=== PATIENT | male | born 1965 | race Caucasian/White ===

== ENCOUNTER 2023-09-13 14:58 | Emergency (ER) | payer OTHER, SELFPAY ==
[2023-09-13 14:59] VITALS: BP 155/107
--- NOTE | 2023-09-13 15:37 | ED.GENMED ---
History of Present Illness
General
Chief Complaint: Dizziness
Source: patient and spouse
Exam Limitations: none
Time Seen by Provider: 09/13/23 15:18
Travel History
Have you had any contact with someone who has COVID-19?: No
Do you have any symptoms of coronavirus? Fever > 100 degrees, chills, cough, shortness of breath, sore throat, loss of taste or smell, muscle aches, or headache?: No
History of Present Illness
History of Present Illness:
Patient is a 58-year-old male who presents to the ER for evaluation. Patient reports he started on Tuesday 2 days ago with chills. Since then he has had intermittent chills sweats. He reports he did have a temperature of 101 yesterday. He denies
any sore throat nasal congestion cough. He was getting a shower today and after the shower while getting dressed he felt short of breath and felt tingling in his left arm which is what prompted him to come to the ER. He denies any chest pain with
this. He has no cardiac history but does not have a family doctor. He has significant family history as family his brother and sisters as well as his parents.
He presently denies any chest pain arm tingling shortness of breath.
He denies any lower extremity swelling. No prior history of DVT PE.
Review of Systems
Review of Systems
Allergies reviewed?: Yes
All Other Systems: ROS reviewed and negative except as documented in HPI and ROS
Constitutional: Reports fever, fatigue and chills
EENT: Reports no symptoms
Respiratory: Reports no symptoms
Cardiac: Denies chest pain
ABD/GI: Reports no symptoms and nausea; Denies abdominal pain or vomiting
: Reports no symptoms; Denies dysuria
Musculoskeletal: Reports no symptoms
Skin: Reports no symptoms
Neurological: Reports no symptoms and other (had tingling of left hand )
Psychiatric: Reports no symptoms
Phy Exam
General Physical Exam
General Presentation: no apparent distress
General age: appears stated age
General Skin: warm and dry
General Habitus: normal
General Mental: alert
General Hydration: appears well hydrated
Cardiovascular Exam
Cardiovascular Exam: regular rate/rhythm, no murmur and normal peripheral pulses
Pulmonary Exam
Pulmonary Exam: lungs clear and no respiratory distress
Neurological Exam
Neurological Exam: alert and oriented x3
Marquis Coma Scale
Eye Opening: Spontaneous
Verbal Response: Oriented
Motor Response: Obeys Commands
GCS Total Score: 15
Musculoskeletal Exam
Musculoskeletal Exam: full ROM
Skin Exam
Skin Exam: normal color and warm/dry
Psychiatric Exam
Psychiatric Exam: normal mood/affect
Course
Orders/Labs/Results
Orders:
Orders
09/13/23 15:52
IV Insert/Care/Rem.- Treatment PRN
09/13/23 15:54
Electrocardiogram (*1) Stat
Reason for Study: Other
Other Reason for Exam: chest pain
Cardiac Monitoring- Treatment ONCE
EKG- Treatment ONCE
09/13/23 15:56
COVID-19 Antigen Urgent
Source: Nasal Swab
Complete Blood Count/With Diff Urgent
Comprehensive Metabolic Panel Urgent
NT-proBNP Urgent
Troponin I Urgent
Influenza A+B Rapid Molecular Urgent
CHIQUIS Source: Nasal Swab
Specimen Description:
09/13/23 16:46
Urinalysis Reflex To Culture Urgent
Date Specimen was Collected: 09/13/23
Time Specimen was Collected: 16:46
Urine Microscopic Reflex Cult Urgent
Urine Culture Urgent
CHIQUIS Source: U
Specimen Description:
Date Specimen was Collected: 09/13/23
Time Specimen was Collected: 16:46
09/13/23 16:56
0.9% Sodium Chloride 1000 ml [Nss] 1,000 ml IV BOLUS
09/13/23 17:11
DDimer [D-Dimer] Urgent
09/13/23 18:07
Chest [CR Chest - 2 Views ] Urgent
Comment:
Reason For Exam: sob
09/13/23 18:56
CT Chest Pe Study Urgent
Comment:
Reason For Exam: sob
09/13/23 20:01
CefTRIAXone [Rocephin] 1,000 mg IV NOW STA
09/13/23 20:05
Sterile Water [Sterile Water For Injection] 10 ml .ROUTE .STK-MED ONE
09/13/23 20:07
Sterile Water [Sterile Water For Injection] 10 ml .ROUTE .STK-MED ONE
Abnormal Lab Results
09/13/23 09/13/23 09/13/23
15:56 16:46 17:11
WBC 12.3 H 10^3/uL
(4.8-10.8)
RBC 4.60 L 10^6/uL
(4.70-6.10)
MCH 32.6 H pg
(27.0-31.0)
Plt Count 117 L 10^3/uL
(130-400)
MPV 10.9 H fL
(7.4-10.4)
Abs Immat Gran (auto) 0.1 H 10^3/uL
(0-0.05)
Absolute Neuts (auto) 10.2 H 10^3/uL
(1.4-6.5)
Absolute Lymphs (auto) 0.9 L 10^3/uL
(1.2-3.4)
Absolute Monos (auto) 1.1 H 10^3/uL
(0.1-0.6)
Neutrophils % 82.8 H %
(42.2-75.2)
Lymphocytes % 7.5 L %
(20.5-51.1)
D-Dimer 0.68 H ug/mlFEU
(0.00-0.50)
Glucose 108 H mg/dl
(70-99)
Total Bilirubin 1.6 H mg/dl
(0.2-1.3)
Urine Ketones 2+ A
(Negative)
Ur Occult Blood Reflex 3+ A
(Negative)
Urine Nitrite (Reflex) Positive A
(Negative)
Urine Bilirubin 1+ A
(Negative)
Urine Urobilinogen 3+ A
(Neg - 1+)
Leukocyte Esterase Rfl 2+ A
(Negative)
Urine RBC 3-6 A /HPF
(0-2)
Urine WBC (Reflex) 50-60 A /HPF
(0-5)
Urine Bacteria (Reflex) Many A
(Negative)
Urine Albumin (Reflex) 1+ A
(Neg - Trace)
09/13/23 15:56
09/13/23 15:56
Vital Signs
Initial and Last Documented VS:
Initial Vital Signs
Temp Pulse Resp BP Pulse Ox
98.1 F 97 18 155/107 98
09/13/23 14:59 09/13/23 14:59 09/13/23 14:59 09/13/23 14:59 09/13/23 14:59
Last Documented Vital Signs
Temp Pulse Resp BP Pulse Ox
98.1 F 83 18 146/98 98
09/13/23 14:59 09/13/23 21:18 09/13/23 14:59 09/13/23 21:18 09/13/23 21:18
Leave Coordinator consulted with Physician
Leave Coordinator consulted with physician?: Yes
Name of Physician Consulted: [email or web address]
MDM/Problems Addressed
Differential Diagnosis Includes:
Not limited to viral syndrome, ACS, PE
MDM/Problems Addressed:
58 yr old male presented with c/ of of fatigue, chills for the past several days. Today while in the shower he also felt well short breath and a left hand tingling. He denies any URI symptoms. He presents awake alert no acute distress. He did
have a temperature at home yesterday of 101 but temperature here is 98.1. Patient arrives awake alert nontoxic with no mildly elevated white count of 12.3 stable hemoglobin, normal kidney function, bilirubin elevated 1.6 no prior comparison.
Patient's urine however appears infected with nitrates, 50�60 white blood cells and leukocytes.
Negative COVID-negative flu. Will treat for UTI
Regarding patient's shortness of breath episode in the shower along with left hand tingling cardiac troponin was checked and unremarkable, no acute findings on EKG will check D-dimer and chest x-ray.
Patient has significant family history cardiac disease however does not have a family doctor. He does admit to having intermittent shortness of breath with exertion at times. If chest and D-dimer are negative will plan for discharge home with
chest pain hotline to ensure the patient has cardiology follow-up likely will need stress test.
2050: CT negative for PE there is a 2.9 cm simple appearing cystic lesion the anterior medial some of several differential diagnostic possibilities include a thymic cyst lymphangioma and forego duplicate cyst. Did review this with patient and the
importance of close outpatient follow-up.
REgarding UTI one dose of Rocephin was given here in the ER however will d/c on Cipro 500 mg BID w/ close f/u by pcp, urology also given.
*Radiology
Radiology exam reviewed: radiology read reviewed
*Pulse Oximetry
Patient hypoxic: no
*EKG
Interpreted by ED Provider?: Yes
Interpretation: normal
Heart Rate: 87
Rate: normal
Rhythm: sinus
Ischemia: no ischemia
*Critical Care Note
Total Time (30-74mins, 75-104mins- exclusive of procedures): Not Applicable
ED Attending Note
-
Portions of this chart may have been created with voice recognition software.� Occasional wrong word or��sound alike� substitutions may have occurred due to the inherent limitations of voice recognition software.
Discharge Plan
Departure
Patient Disposition: Home (Routine Discharge)
Date of Disposition: 09/13/23
Time of Disposition: 20:59
Patient with high blood pressure during this ER visit?: Yes
Condition: Fair
Covid-19: Not Applicable
Discharge Problem:
Acute UTI, Acute dyspnea
Instructions: Urinary Tract Infection, Adult (DC), Shortness of Breath (Dyspnea) (DC), Chest Pain DCA Follow Up
Prescriptions:
New
ciprofloxacin HCl [Cipro] 500 mg tablet
500 mg PO BID Qty: 14 0RF
No Action
ibuprofen [Motrin IB] 200 mg Tablet
200 mg PO DAILYPRN PRN (Reason: mild pain)
bismuth subsalicylate [Pepto-Bismol] 262 mg Tablet,Chewable
1 tab PO DAILYPRN PRN (Reason: stomach issues)
Hims Otc Ed Tablet
1 tab PO DAILYPRN PRN (Reason: erectile dysfunction)
Patient Comments:
09/13/2023, OTC erectile dysfunction medication called 'hims'.
Referrals:
Mainor Alarcon MD [Family Provider] -
Joseph Quinonez MD [Active] -
Chester Gruber MD [Active] -
Activity Restrictions/Additional Instructions:
As discussed you have a urinary tract infection and a medication called Cipro 500 mg was sent to your pharmacy. Take this twice a day for the next week. Follow-up closely with your family doctor as well as urology. Stay well-hydrated return if
any worsening of symptoms of abdominal pain nausea vomiting back pain fever chills.
Regarding your shortness of breath it is recommended that you follow-up with cardiology. If you do not receive a phone call from their practice in the next 1 to 2 days can please give them a call in the next day to schedule appointment as soon as
possible. Return if any worsening of symptoms including difficulty breathing chest pain or any further concerns
please also follow-up on additional findings of your CAT scan as discussed for simple appearing cystic lesion in your mediastinum
Interventions
Interventions:
*Risk Screen - Suicide Last Done: 09/13/23 21:19
*General Assessment Last Done: 09/13/23 21:19
*Neglect/Abuse Screening Last Done: 09/13/23 21:19
*ED COVID-19 Vaccine History Last Done: 09/13/23 21:19
*Nursing Disposition Last Done: 09/13/23 21:20
ED- Neurological Assessment Last Done: 09/13/23 16:44
ED Swallowing Screen Last Done: 09/13/23 16:45
Discharge Date and Time
Discharge Date/Time: 09/13/23 21:20
[2023-09-13 16:32] LABS: COVID-19 Antigen Negative (Negative)
[2023-09-13 16:37] LABS: % Basophils 0.2 % (0-2); % Eosinophils 0.2 % (0-6); % Immature Granulocytes 0.5 % (0-0.5); % Lymphocytes 7.5 % (20.5-51.1); % Monocytes 8.8 % (1.7-9.3); % Neutrophils 82.8 % (42.2-75.2); Absolute Immature Granulocytes 0.1 10^3/uL (0-0.05); Absolute Lymphocytes 0.9 10^3/uL (1.2-3.4); Absolute Monocytes 1.1 10^3/uL (0.1-0.6); Absolute Neutrophils 10.2 10^3/uL (1.4-6.5); Hematocrit 42.1 % (39.0-52.0); Mean Corp Hgb Conc. 35.6 g/dL (33.0-37.0); Mean Corpuscular Hgb 32.6 pg (27.0-31.0); Mean Corpuscular Volume 91.5 fL (80.0-94.0); Mean Platelet Volume 10.9 fL (7.4-10.4); Nucleated Red Blood Cells % 0 % (-); Platelet Count 117 10^3/uL (130-400); White Blood Cell Count 12.3 10^3/uL (4.8-10.8)
[2023-09-13 16:47] LABS: ALT (SGPT) 20 U/L (0-50); AST (SGOT) 24 U/L (17-59); Albumin 4.4 g/dl (3.5-5.0); Alkaline Phosphatase 65 U/L (38-126); Blood Urea Nitrogen 18 mg/dl (9-20); Calcium 9.2 mg/dl (8.4-10.2); Carbon Dioxide 26 mmol/L (22-30); Chloride 103 mmol/L (98-107); Glucose 108 mg/dl (70-99); Potassium 4.1 mmol/L (3.5-5.1); Sodium 136 mmol/L (135-145); Total Bilirubin 1.6 mg/dl (0.2-1.3); Total Protein 7.4 g/dl (6.3-8.2); eGFR > 60.00
[2023-09-13 16:52] LABS: Urine Albumin 1+ (Neg - Trace); Urine Bilirubin 1+ (Negative); Urine Character Slightly Cloudy (Clear); Urine Color Yellow; Urine Glucose Negative (Negative); Urine Ketone 2+ (Negative); Urine Leukocyte 2+ (Negative); Urine Nitrite Positive (Negative); Urine Occult Blood 3+ (Negative); Urine Specific Gravity 1.015 (<1.030); Urine Urobilinogen 3+ (Neg - 1+)
[2023-09-13 16:58] LABS: NT-proBNP 382 pg/ml; Troponin I 0.012 ng/ml
[2023-09-13] MEDS: NSS 1000 IV (17:02)
[2023-09-13 17:12] LABS: Urine Mucus Many
[2023-09-13 17:13] LABS: Urine Bacteria Many (Negative); Urine White Cell 50-60 /HPF (0-5)
[2023-09-13 18:37] LABS: D-Dimer 0.68 ug/mlFEU (0.00-0.50)
[2023-09-13] MEDS: ROCEPHIN 1000 MG IV (20:11)
[2023-09-13 21:18] VITALS: BP 146/98
== END 2023-09-13 21:20 | disposition home or self-care (01) ==
LOC: EMR 14:58
PROVIDERS: Nurse Practitioner; EMERGENCY PHYSICIAN Emergency Medicine; FAMILY PHYSICIAN Family Medicine
DX: N39.0 Urinary tract infection, site not specified (principal); R06.00 Dyspnea, unspecified; D18.1 Lymphangioma, any site; R03.0 Elevated blood-pressure reading, without diagnosis of hypertension; Z11.52 Encounter for screening for COVID-19
CPT/HCPCS: 99285; 96374; 96361; 71046; 71275; 80053; 81003; 81015; 83880; 84484; 85025; 85379; 87077; 87086; 87186; 87502; 87811; 93005; Q9967